=== PATIENT | male | born 2005 | race African-American/Black ===

== ENCOUNTER → 2025-02-15 14:36 | Outpatient (REF) | payer OTHER, SELFPAY ==
--- NOTE | 2025-02-15 14:46 | CA_ITS ---
Transthoracic Echocardiogram Patient (Last, First, Middle): Pedro Lema, Gender: Male Date of : 2005 Age: 19 Procedure Date: 02/15/2025 Procedure Type: Transthoracic Echocardiogram Location: OP Height: 177. cm Weight: 92.99 kg BSA: 2.10 m2 Heart Rate: bpm BP: 140 / 90 mmHg Web Site Project Manager: JANE Referring MD: Gutierrez Rubio MD Symptoms: R94.31 ABNORMAL EKG Study Quality: Good ECG Rhythm: Sinus Conclusions: - The left ventricular systolic function is normal. The calculated ejection fraction is 62% by biplane method. - There is mildly increased left ventricular wall thickness. - Mildly increased right ventricular cavity size. - No obvious valvular pathology seen on this study. Findings Left Ventricle Normal left ventricular cavity size. There is mildly increased left ventricular wall thickness. The left ventricular systolic function is normal. The calculated ejection fraction is 62% by biplane method. There is no evidence of regional wall motion abnormalities. Diastolic function is normal for age. Right Ventricle Mildly increased right ventricular cavity size. There is normal right ventricular systolic function. Atria Both atria are normal in size. Aortic Valve There is a normal trileaflet aortic valve. There is no aortic valve stenosis. There is no aortic valve regurgitation. Mitral Valve The mitral valve appears normal. There is no mitral valve regurgitation. There is no mitral valve stenosis. Pulmonic Valve There is mild pulmonic valve regurgitation. Tricuspid Valve There is trace tricuspid valve regurgitation. There is no evidence of pulmonary hypertension. Great Vessels The asc aorta and aortic arch are normal in size. Venous The inferior vena cava is normal in size and collapses greater than 50% with inspiration. Pericardium/Pleural There is no evidence of pericardial effusion. Prior Study Comparison No prior study available for comparison. Recommendations, Care & Conclusions No obvious valvular pathology seen on this study. Measurements 2D Linear Measurements IVSd: 0.95 0.6-0.9/0.6-1.0 cm LVIDd: 5.42 3.9-5.3/4.2-5.9 cm LVIDd Index: 2.58 2.4-3.2/2.2-3.1 cm/m2 LVIDs: 3.60 2.0-3.6 cm LVPWd: 1.18 0.7-1.1 cm Ao Root: 3.80 2.1-3.5 cm LA Diam: 3.40 2.7-3.8/3.0-4.0 cm LAIDs Index: 1.62 1.5-2.3 cm/m2 LV Mass: 281.11 67-162/88-224 g LV Mass Index: 133.86 43-95/49-115 g/m2 LVOT Diam: 2.50 3.0+(-)1.3 cm 2D Systolic Function EF 4C: 56.90 >55% EF 2C: 68.10 >55% EF BiP: 61.50 >55% Mitral Valve MV Pk E: 0.94 MV PK A: 0.49 MV Decel Time: 205.00 E/A: 1.90 E'Lateral: 12.40 E'Medial: 11.00 E/E' Med: 8.60 E/E' Lat: 7.60 PHT: 60.00 MVA PHT: 3.67 Decel [place]: 4.59 Aortic Valve AoV Pk Neal: 1.25 AoV Mn Neal: 0.90 AoV VTI: 0.26 AoV Pk Grad: 6.00 Aov Mn Grad: 4.00 [place] Cont.VTI: 3.96 LVOT LVOT Pk Neal: 1.06 LVOT Mn Neal: 0.69 LVOT VTI: 0.21 LVOT Pk Grad: 4.00 LVOT Mn Grad: 2.00 LVOT Diam: 2.50 LVOT Area: 4.91 Diastolic Function MV Pk E: 0.94 MV Pk A: 0.49 E/A: 1.90 E'Medial: 11.00 E/E' Med: 8.60 E' Laterial: 12.40 E/E' Lat: 7.60 Right Ventricle TAPSE (mm): 18.00 TVS' Neal: 12.00 Tricuspid Valve TR Pk Neal: 1.85 TR Pk Grad: 14.00 RA Press: 3.00 RVSP: 17.00 Great Vessels Aorta Ao Root-2D: 3.80 2.0-3.7 cm Ao Asc: 2.80 2.1-3.4 cm Ao Arch: 2.40 Pulmonary Valve PV Pk Neal: 1.25 Peak PV Grad: 6.00 Updated in Other Vendor System with Status of Final Rupesh Juarez MD electronically signed on 02/16/2025 11:06:36 AM with status of Final
--- OUTSIDE RECORDS SUMMARY | 2025-02-15 16:25 | XMS_ITS | Clinical Summary ---
Author Organization [facility] Address [address] [place] [id number] Care Team Providers Care Cage Unloader Name Role Phone Nopcp, Per Patient MD Primary Care Provider Social History Tobacco Use Types Packs/Day Years Used Date Smoking Tobacco: Never Assessed Sex and Gender Information Value Date Recorded Sex Assigned at Not on file Legal Sex Male 5:41 PM EST Gender Identity Not on file Sexual Orientation Not on file Plan of Treatment Health Maintenance Due Date Last Done Comments Hepatitis C Screening 2005 COVID-19 Vaccine ( - 2023-2 5 season) 2024 09/19/2021 Influenza Vaccine (Season Ended) 2025 TdaP/Td Vaccine (2 - Td or Tdap) 04/30/2028 04/30/2018 Hepatitis B Vaccine Completed 08/17/2010, 04/10/2006, 2005 Hepatitis A Vaccine Completed 05/05/2012, 02/05/2011 HPV Vaccine Completed 05/11/2020, 04/30/2018 Meningococcal ACWY Vaccine Completed 04/16, 04/30/2018 Pneumococcal Vaccine 19-49 years At Risk patient Aged Out No longer eligible based on patient's age to complete this topic Insurance [employer] Care Teams Cage Unloader Relationship Specialty Start Date End Date Nopcp, Per Patient, [address] [facility] [email or web address] [place], [place] [id number] PCP - General 09/23/24
== END ==
LOC: HO.CARD 14:36
PROVIDERS: Visit Provider Family Medicine
DX: Z02.5 Encounter for examination for participation in sport (principal); R94.31 Abnormal electrocardiogram [ECG] [EKG]
CPT/HCPCS: 93306

== ENCOUNTER → 2025-02-15 14:46 | Outpatient (BNV) | payer OTHER, SELFPAY | PROVIDERS: Visit Provider Internal Medicine | DX: I37.1 Nonrheumatic pulmonary valve insufficiency (principal); I36.1 Nonrheumatic tricuspid (valve) insufficiency; R94.31 Abnormal electrocardiogram [ECG] [EKG] | CPT/HCPCS: 93306 ==